=== PATIENT | male | born 1950 | race Caucasian/White ===

== ENCOUNTER 2017-11-04 07:09 | Day surgery (SDC) | payer MEDICARE, OTHER ==
[2017-11-04] MEDS: NS 1,000 ML IV (07:24)
[2017-11-04] MEDS ORDERED: PROPOFOL 200 MG/20 ML VIAL As Ordered (08:06)
[2017-11-04] MEDS ORDERED: LIDOCAINE 2% INJ 100 MG/5 ML SDV (FOR ANES.) As Ordered (08:06)
== END 2017-11-04 08:37 | disposition home or self-care (01) ==
LOC: M OPP 07:09
DX: Z12.11 Encounter for screening for malignant neoplasm of colon (principal); K57.30 Diverticulosis of large intestine without perforation or abscess without bleeding; K64.8 Other hemorrhoids; Z86.010 Personal history of colon polyps; I10 Essential (primary) hypertension; E78.00 Pure hypercholesterolemia, unspecified; K21.9 Gastro-esophageal reflux disease without esophagitis; M19.90 Unspecified osteoarthritis, unspecified site; M54.5 Low back pain; F43.10 Post-traumatic stress disorder, unspecified; F17.210 Nicotine dependence, cigarettes, uncomplicated; N42.9 Disorder of prostate, unspecified; F41.9 Anxiety disorder, unspecified; Z79.82 Long term (current) use of aspirin; Z79.899 Other long term (current) drug therapy; Z87.730 Personal history of (corrected) cleft lip and palate; Z90.89 Acquired absence of other organs; Z96.653 Presence of artificial knee joint, bilateral
CPT/HCPCS: G0105

== ENCOUNTER 2023-04-22 10:09 | Day surgery (SDC) | payer MEDICARE, OTHER ==
[~2023-04-22] VITALS: Ht 167.6 cm; Wt 79.7 kg
[~2023-04-22 10:09] MED LIST: ACET65TA OR; ASPI81TA83 OR; COUM1TAB18 OR; ECOT81TA5 PO; ELIQ5TAB PO; EZET10TA21 PO; FERR325T OR; FERR325T3 PO; LISI10TA4 OR; LOSA-528 PO; LOSA50TA28 PO; MULT-90 PO; MULTIVIT PO; NAPRPOW4 PO; NIAC500T OR; NIAC500T64 PO; NS 1,000 ML IV ONE; OMEG1CAP85 PO; OMEP-173 PO; OMEP20TA7 OR; PERC5TAB8 OR; ROSU20TA61 PO; TAMS1CAP17 PO; VITAMIN B COMPLE1 OR; VITAMIN C PO; VITAMIN D50000 UNT OR; VYTO10TA5 OR
[2023-04-22] MEDS ORDERED: propofoL 200 MG/20 ML VIAL As Ordered ONE ×2 (11:21→11:59)
[2023-04-22] MEDS ORDERED: ePHEDrine SULFATE 25 MG/5 ML(5MG/ML) SYRINGE As Ordered ONE (11:40)
[2023-04-22] MEDS ORDERED: GLYCOPYRROLATE INJ 0.2 MG/ML 2 ML VIAL As Ordered ONE (11:43)
[2023-04-22 12:04] VITALS: TEMP 97.2
[2023-04-22 12:19] VITALS: BP 143/69; O2SAT 98
== END 2023-04-22 12:26 | disposition home or self-care (01) ==
LOC: M OPP 10:09
PROVIDERS: ATTEND Internal Medicine Gastroenterology
DX: Z12.11 Encounter for screening for malignant neoplasm of colon (principal); Z86.010 Personal history of colon polyps; K57.30 Diverticulosis of large intestine without perforation or abscess without bleeding; K64.8 Other hemorrhoids; Z79.01 Long term (current) use of anticoagulants; Z79.02 Long term (current) use of antithrombotics/antiplatelets; Z79.82 Long term (current) use of aspirin; Z79.899 Other long term (current) drug therapy

== ENCOUNTER → 2023-09-22 | Outpatient (CLI) | payer MEDICARE, OTHER ==
[~2023-09-22] MED LIST changes: -NS 1,000 ML IV ONE
== END ==
LOC: M RAD 07:30
PROVIDERS: ATTEND Orthopaedic Surgery
DX: M54.12 Radiculopathy, cervical region (principal)

== ENCOUNTER → 2023-11-21 | Outpatient (CLI) | payer MEDICARE, OTHER | LOC: M SOG 07:57 | PROVIDERS: ATTEND Orthopaedic Surgery | DX: M25.561 Pain in right knee (principal) ==

== ENCOUNTER 2023-11-29 08:44 | Day surgery (SDC) | payer MEDICARE, OTHER ==
[~2023-11-29] VITALS: Ht 167.6 cm; Wt 78.5 kg
[~2023-11-29 08:44] MED LIST changes: +MIDAZOLAM INJ 2MG/2ML VIAL As Ordered ONE; +fentaNYL 100 MCG/2 ML INJECTION As Ordered ONE
[2023-11-29] MEDS: OFLOXACIN 0.3 % (OCUFLOX) OPTH SOL 5ML OD SCH (09:16)
[2023-11-29] MEDS: CYCLOPENTOLATE 1% OPHTH SOLN 2ML BTL OD SCH (09:16)
[2023-11-29] MEDS: PROPARACAINE 0.5% OPHTH SOL 15ML OD ONE (09:16)
[2023-11-29] MEDS: TROPICAMIDE 1% OPHTH SOLN 15ML OD SCH (09:16)
[2023-11-29] MEDS: PHENYLEPHRINE 2.5% OPHTH SOL 2ML OD SCH (09:16)
[2023-11-29] MEDS: BSS IRR 500ML/OMIDRIA 4ML IRR BAG (OR ONLY) As Ordered ONE (09:46)
[2023-11-29] MEDS: LIDOCAINE 1% SDV 5ML VIAL As Ordered ONE (09:46)
[2023-11-29] MEDS: CEFUROXIME 1MG/0.1ML INTRACAMERAL INJ As Ordered ONE (09:49)
[2023-11-29 10:01] VITALS: BP 170/79; TEMP 97.4; O2SAT 96
[2023-11-29] MEDS ORDERED: ceFAZolin 1GM VIAL As Ordered ONE (10:58)
== END 2023-11-29 10:13 | disposition home or self-care (01) ==
LOC: M SDC 08:44
PROVIDERS: ATTEND Ophthalmology
DX: H25.11 Age-related nuclear cataract, right eye (principal); G47.30 Sleep apnea, unspecified; Z87.891 Personal history of nicotine dependence; Z79.899 Other long term (current) drug therapy
CPT/HCPCS: 66984; J0690; J0697; J1097; J2250; J3010; V2632

== ENCOUNTER 2023-12-27 06:20 | Day surgery (SDC) | payer OTHER, MEDICARE ==
[~2023-12-27] VITALS: Ht 167.6 cm; Wt 79.4 kg
[~2023-12-27 06:20] MED LIST changes: +ACET-683 PO; +B-12100010 PO; +DOCU-160 PO; +LOVA1CAP17 PO; -MIDAZOLAM INJ 2MG/2ML VIAL As Ordered ONE; +PREG150C2; +RA B1TAB7 PO; -fentaNYL 100 MCG/2 ML INJECTION As Ordered ONE
[2023-12-27] MEDS: PROPARACAINE 0.5% OPHTH SOL 15ML OS ONE (07:00)
[2023-12-27] MEDS: ATROPINE SULFATE 1% OPHTH SOLN 2ML BTL OS SCH (07:25)
[2023-12-27] MEDS: PHENYLEPHRINE 2.5% OPHTH SOL 2ML OS SCH (07:25)
[2023-12-27] MEDS: TROPICAMIDE 1% OPHTH SOLN 15ML OS SCH (07:25)
[2023-12-27] MEDS: OFLOXACIN 0.3 % (OCUFLOX) OPTH SOL 5ML OS SCH (07:26)
[2023-12-27] MEDS ORDERED: fentaNYL 100 MCG/2 ML INJECTION As Ordered ONE (08:08)
[2023-12-27] MEDS ORDERED: MIDAZOLAM INJ 2MG/2ML VIAL As Ordered ONE (08:08)
[2023-12-27] MEDS: LIDOCAINE 1% SDV 5ML VIAL As Ordered ONE (08:13)
[2023-12-27] MEDS: BSS IRR 500ML/OMIDRIA 4ML IRR BAG (OR ONLY) As Ordered ONE (08:13)
[2023-12-27] MEDS: CEFUROXIME 1MG/0.1ML INTRACAMERAL INJ As Ordered ONE (08:14)
[2023-12-27 08:22] VITALS: BP 131/61; TEMP 97.9; O2SAT 96
== END 2023-12-27 08:39 | disposition home or self-care (01) ==
LOC: M SDC 06:20
PROVIDERS: ATTEND Ophthalmology
DX: H25.12 Age-related nuclear cataract, left eye (principal); G47.30 Sleep apnea, unspecified; Z72.0 Tobacco use; Z79.899 Other long term (current) drug therapy
CPT/HCPCS: 66984; J0697; J1097; J2250; J3010; V2632

== ENCOUNTER → 2024-01-24 | Outpatient (CLI) | payer MEDICARE, OTHER ==
[~2024-01-24] MED LIST changes: +LIDOCAINE 1% MDV 20ML VIAL As Ordered ONE; +MIDAZOLAM INJ 2MG/2ML VIAL As Ordered ONE; +fentaNYL 100 MCG/2 ML INJECTION As Ordered ONE
[2024-01-24 12:20] VITALS: TEMP 98.6
[2024-01-24 12:54] LABS: BASO % 0.6 % (0.0-1.0); EOS # 0.2 10^3/uL (0.0-0.5); HEMATOCRIT 29.6 % (42.0-52.0); HEMOGLOBIN 9.5 g/dl (13.5-17.5); LYMPH # 0.9 10^3/uL (1.5-5.0); LYMPH % 18.2 % (24.0-44.0); MEAN CORPUSCULAR HEMOGLOBIN 28.9 pg (27.0-33.0); MEAN CORPUSCULAR HGB CONC 32.1 g/dl (32.0-36.5); MONO # 0.5 10^3/uL (0.0-0.8); MONO % 10.1 % (2.0-8.0); NEUTROPHILS # 3.4 10^3/uL (1.5-8.5); NEUTROPHILS % 66.7 % (36.0-66.0); PLATELET COUNT, AUTOMATED 221 10^3/uL (150-450); RED BLOOD COUNT 3.29 10^6/uL (4.30-6.10); WHITE BLOOD COUNT 5.1 10^3/uL (4.0-10.0)
[2024-01-24 14:09] VITALS: BP 168/74; O2SAT 99
== END ==
LOC: M IRPRO 12:00
PROVIDERS: ATTEND Specialist
DX: D50.9 Iron deficiency anemia, unspecified (principal)
CPT/HCPCS: 36415; 38222; 77012; 85025; 88300; 88305; 88311; 88313; 99152; J2250; J3010

== ENCOUNTER → 2024-02-01 | Outpatient (CLI) | payer MEDICARE, OTHER ==
[~2024-02-01] MED LIST changes: -LIDOCAINE 1% MDV 20ML VIAL As Ordered ONE; -MIDAZOLAM INJ 2MG/2ML VIAL As Ordered ONE; -fentaNYL 100 MCG/2 ML INJECTION As Ordered ONE
[2024-02-01 14:03] LABS: BASO % 0.7 % (0.0-1.0); EOS # 0.3 10^3/uL (0.0-0.5); EOS % 5.3 % (0.0-3.0); HEMATOCRIT 29.6 % (42.0-52.0); HEMOGLOBIN 9.5 g/dl (13.5-17.5); LYMPH # 1.3 10^3/uL (1.5-5.0); LYMPH % 22.3 % (24.0-44.0); MEAN CORPUSCULAR HEMOGLOBIN 28.9 pg (27.0-33.0); MEAN CORPUSCULAR HGB CONC 32.1 g/dl (32.0-36.5); MONO # 0.6 10^3/uL (0.0-0.8); MONO % 9.6 % (2.0-8.0); NEUTROPHILS # 3.7 10^3/uL (1.5-8.5); NEUTROPHILS % 61.9 % (36.0-66.0); PLATELET COUNT, AUTOMATED 259 10^3/uL (150-450); RED BLOOD COUNT 3.29 10^6/uL (4.30-6.10)
== END ==
LOC: M LAB 13:16
PROVIDERS: ATTEND Specialist
DX: D64.9 Anemia, unspecified (principal)

== ENCOUNTER → 2024-02-22 | Outpatient (CLI) | payer MEDICARE, OTHER | LOC: M SOG 08:18 | PROVIDERS: ATTEND Orthopaedic Surgery | DX: M17.11 Unilateral primary osteoarthritis, right knee (principal); Z96.652 Presence of left artificial knee joint ==

== ENCOUNTER → 2024-02-28 | Outpatient (CLI) | payer MEDICARE, OTHER | LOC: M RAD 07:41 | PROVIDERS: ATTEND Specialist | DX: D64.9 Anemia, unspecified (principal) ==

== ENCOUNTER → 2024-03-16 | Outpatient (REF) | payer MEDICARE, OTHER ==
[2024-03-16 13:18] LABS: APPEARANCE, URINE CLEAR (CLEAR); BACTERIA, URINE AUTO NEGATIVE (NEGATIVE); BILIRUBIN, URINE AUTO NEGATIVE (NEGATIVE); BLOOD, URINE BLOOD NEGATIVE (NEGATIVE); COLOR, URINE YELLOW (YELLOW); GLUCOSE, URINE (UA) AUTO NEGATIVE (NEGATIVE); KETONE, URINE AUTO NEGATIVE (NEGATIVE); LEUKOCYTE ESTERASE, URINE AUTO NEGATIVE (NEGATIVE); NITRITE, URINE AUTO NEGATIVE (NEGATIVE); PROTEIN, URINE AUTO NEGATIVE (NEGATIVE); RBC, URINE AUTO 0 /HPF (0-3); SPECIFIC GRAVITY URINE AUTO 1.016 (1.002-1.035); SQUAMOUS EPITHELIAL CELL UR AU 0 /HPF (0-6); WBC, URINE AUTO 0 /HPF (0-3)
[2024-03-16 13:40] LABS: TOTAL PROTEIN,RANDOM URINE 10.1 MG/DL (0.0-14.0)
[2024-03-16 13:45] LABS: C REACTIVE PROTEIN QUANTITATIV 1.2 MG/DL (<1.0)
[2024-03-16 13:46] LABS: CREATININE,RANDOM URINE 72.1 MG/DL
[2024-03-16 13:48] LABS: COMPLEMENT C3 100.6 MG/DL (90.0-170.0); COMPLEMENT C4 23.4 MG/DL (12-36)
== END ==
LOC: M SFHCRHEU 10:44
PROVIDERS: ATTEND Internal Medicine
DX: M06.4 Inflammatory polyarthropathy (principal)

== ENCOUNTER → 2024-04-05 | Outpatient (CLI) | payer MEDICARE, OTHER | LOC: M PLAIMG 07:13 | PROVIDERS: ATTEND Internal Medicine | DX: R93.6 Abnormal findings on diagnostic imaging of limbs (principal) ==

== ENCOUNTER → 2024-09-27 | Outpatient (CLI) | payer MEDICARE, OTHER ==
[~2024-09-27] MED LIST changes: +LIDOCAINE 1% MDV 20ML VIAL As Ordered ONE; +OMEG-28 PO; -OMEG1CAP85 PO; -ROSU20TA61 PO; +ROSU20TA86 PO
[2024-09-27 11:15] VITALS: TEMP 98.4
[2024-09-27 11:44] LABS: BASO # 0.1 10^3/uL (0.0-0.2); BASO % 0.9 % (0.0-1.0); EOS # 0.2 10^3/uL (0.0-0.5); EOS % 3.1 % (0.0-3.0); HEMATOCRIT 31.9 % (42.0-52.0); HEMOGLOBIN 10.4 g/dl (13.5-17.5); LYMPH # 0.8 10^3/uL (1.5-5.0); LYMPH % 13.2 % (24.0-44.0); MEAN CORPUSCULAR HEMOGLOBIN 28.9 pg (27.0-33.0); MEAN CORPUSCULAR HGB CONC 32.6 g/dl (32.0-36.5); MEAN CORPUSCULAR VOLUME 88.6 fl (80.0-96.0); MONO # 0.4 10^3/uL (0.0-0.8); NEUTROPHILS # 4.4 10^3/uL (1.5-8.5); NEUTROPHILS % 75.6 % (36.0-66.0); PLATELET COUNT, AUTOMATED 224 10^3/uL (150-450); WHITE BLOOD COUNT 5.8 10^3/uL (4.0-10.0)
[2024-09-27 12:26] VITALS: BP 164/78; O2SAT 100
== END ==
LOC: M IRPRO 11:02
PROVIDERS: ATTEND Internal Medicine Hematology & Oncology
DX: D64.9 Anemia, unspecified (principal)